=== PATIENT | female | born 1990 | race African-American/Black ===

== ENCOUNTER 2021-05-25 16:55 | Observation (INO) | payer OTHER ==
[~2021-05-25] VITALS: Ht 165.1 cm; Wt 82.6 kg
[2021-05-25] MEDS ORDERED: LACTATED RINGERS 1,000 ML IV SCH (18:00)
[2021-05-25] MEDS ORDERED: ONDANSETRON HCL 4MG/2ML INJ IV PRN (18:00)
[2021-05-25] MEDS ORDERED: ACETAMINOPHEN 500MG TABLET PO NR (18:00)
[2021-05-25 18:23] LABS: CLARITY URINE CLEAR (CLEAR); COLOR URINE YELLOW (YELLOW); KETONES URINE NEGATIVE (NEGATIVE); LEUKOCYTE ESTERASE URINE NEGATIVE (NEGATIVE); NITRITE URINE NEGATIVE (NEGATIVE); OCCULT BLOOD URINE NEGATIVE (NEGATIVE); PROTEIN URINE NEGATIVE (NEGATIVE); SPECIFIC GRAVITY URINE 1.015 (1.005-1.030); UROBILINOGEN URINE 0.2 E.U./dL (0.2-1.0)
== END 2021-05-25 20:22 | disposition home or self-care (01) ==
LOC: 8 EST LDRP 16:55
PROVIDERS: ADMIT Obstetrics & Gynecology; ATTEND Obstetrics & Gynecology
DX: O26.892 Other specified pregnancy related conditions, second trimester (principal); R10.32 Left lower quadrant pain; Z3A.27 27 weeks gestation of pregnancy
CPT/HCPCS: 59025; 76805; 81003; 96361; 96374; G0378; J2405; 99281; J7120; G0379